=== PATIENT | male | born 1950 ===

== ENCOUNTER 2017-11-23 20:25 | Emergency (ER) | payer SELFPAY ==
[2017-11-23] MEDS ORDERED: ACETAMINOPHEN 1,000 MG/100 ML BTL IVPB ONE (20:51)
--- NOTE | 2017-11-23 20:56 | Emergency Department Record ---
History of Present Illness - General Chief Complaint: Back Pain/Injury Stated Complaint: BACK PAIN AND PAIN IN LOWER EXTREMITIES Time Seen by Provider: 11/23/17 20:35 Source: Patient Mode of Arrival: Ambulatory Limitations: No limitations - History of Present Illness Initial Comments: The patient is here due to worsening of his chronic back pain. He has chronic pain with chronic leg numbness off and on for many months. Today he was lying down and then got up and felt a "POP" and pain in his lower back. Now the pain is present all the time and worse with any movement, walking and bending. There is no pain radiating down the legs and no leg numbness, weakness, or any bowel or bladder issues. There is no CP, CP, SOB, or dysuria. MD Complaint: Back pain Onset/Timin -: Hour(s) Similar Symptoms Previously: No Place: Home Radiation: None Severity: Moderate Severity scale (1-10): 8 Consistency: Constant, Getting worse Improves With: None Worsens With: Sitting upright Context: Other Travel Screening - Travel/Exposure Within Last 30 Days Have you traveled within the last 30 days?: No Review of Systems Constitutional: Denies: Chills, Fever Eyes: Denies: Eye discharge ENT: Denies: Congestion Respiratory: Denies: Cough, Dyspnea Past Medical History - SOCIAL HISTORY Smoking Status: Current every day smoker Alcohol Use: Occasional Drug Use: None - RESPIRATORY Hx Respiratory Disorders: Yes Hx COPD: Yes - CARDIOVASCULAR Hx Cardio Disorders: Yes Hx Heart Attack: Yes Hx Pacemaker/Defib: Yes - NEURO Hx Neuro Disorders: Yes Hx TIA: Yes - GI Hx GI Disorders: No - Hx Genitourinary Disorders: No - ENDOCRINE Hx Endocrine Disorders: No - MUSCULOSKELETAL Hx Musculoskeletal Disorders: Yes Hx Arthritis: Yes - PSYCH Hx Psych Problems: No - HEMATOLOGY/ONCOLOGY Hx Hematology/Oncology Disorders: No Family Medical History Any Significant Family History?: Yes *Cancer Comment: Aunt Hx Diabetes: Father Hx Heart Disease: Father *Heart Comment: Aunt Physical Exam - General General Appearance: Alert, Oriented x3, Cooperative, No acute distress - Head Head exam: Atraumatic, Normocephalic, Normal inspection - Eye Eye exam: Normal appearance, PERRL - Neck Neck exam: Normal inspection, Full ROM. negative: Tenderness - Respiratory Respiratory exam: Normal lung sounds bilaterally. negative: Respiratory distress - Cardiovascular Cardiovascular Exam: Regular rate, Normal rhythm - GI/Abdominal GI/Abdominal exam: Soft, Normal bowel sounds. negative: Tenderness - Extremities Extremities exam: Normal inspection, Full ROM, Normal capillary refill, Other ( Neg SLR bilaterally.). negative: Tenderness - Back Back exam: Reports: Normal inspection, Paraspinal tenderness, Vertebral tenderness (There is mild diffuse lumbar tenderness.) - Neurological Neurological exam: Alert, Normal gait, Oriented X3, Reflexes normal. negative: Abnormal gait, Altered, Motor sensory deficit Course Vital Signs 11/23/17 20:35 Temperature 97.7 F Pulse Rate [ 78 Pulse Ox Probe] Respiratory 18 Rate Blood Pressure 141/100 [Left Arm] Pulse Ox 97 - Reevaluation(s) Reevaluation #1: This visit is on [facility] actually due to the patient was unfortunately registered incorrectly. 11/23/17 22:19 Medical Decision Making - Lab Data Result diagrams: 11/23/17 21:00 11/23/17 21:00 Disposition Forms: Patient Portal Access Quality - Quality Measures Quality Measures: N/A - Blood Pressure Screening View Details: Yes Does Patient Have Any of the Following: Active Dx of HTN Blood Pressure Classification: Hypertensive Reading Systolic Measurement: 141 Diastolic Measurement: 100 Screening for High Blood Pressure: Patient Exclusion, Hx of HTN [[id number]]
== END 2017-11-23 22:18 | disposition left against medical advice (07) ==
LOC: ER 20:25
DX: Z53.20 Procedure and treatment not carried out because of patient's decision for unspecified reasons (principal)